=== PATIENT | female | born 1965 | race Two or more races ===

== ENCOUNTER 2023-01-17 14:09 | Emergency (ER) | payer MEDICARE, MEDICAID ==
[~2023-01-17] VITALS: Ht 154.9 cm; Wt 60.9 kg
[2023-01-17 14:23] VITALS: BP 122/86
[2023-01-17] MEDS ORDERED: HYDROcodone-ACET 5/325MG TAB PO ONE (14:45)
[2023-01-17] MEDS ORDERED: IBUP-1456 PO (15:26)
[2023-01-17] MEDS ORDERED: IBUPROFEN 800 MG TAB PO ONE (15:30)
[2023-01-17] MEDS ORDERED: ACETAMINOPHEN 500 MG TAB PO ONE (15:30)
== END 2023-01-17 15:41 | disposition home or self-care (01) ==
LOC: ER 14:09 → EDBD 14:09 → ER 15:41
DX: S16.1XXA Strain of muscle, fascia and tendon at neck level, initial encounter (principal); M50.323 Other cervical disc degeneration at C6-C7 level; Z88.6 Allergy status to analgesic agent; V43.52XA Car driver injured in collision with other type car in traffic accident, initial encounter; Y93.89 Activity, other specified; Y92.89 Other specified places as the place of occurrence of the external cause; Y99.8 Other external cause status
CPT/HCPCS: 70450; 72125